=== PATIENT | female | born 1995 | race African-American/Black ===

== ENCOUNTER 2016-06-29 03:13 | Emergency (ER) | payer MEDICAID ==
[~2016-06-29] VITALS: Ht 165.1 cm; Wt 63.0 kg
[2016-06-29] MEDS ORDERED: FAMOTIDINE 20MG/2ML VIAL IV SCH (05:00)
[2016-06-29] MEDS ORDERED: SODIUM CHLORIDE 0.9% 1,000 ML IV ONE (05:00)
[2016-06-29] MEDS ORDERED: ONDANSETRON HCL 4MG/2ML VIAL IV ONE (05:00)
[2016-06-29 05:15] LABS: HEMATOCRIT. 34.9 % (36.0-48.0); HEMOGLOBIN. 11.2 g/dL (12.0-16.0); MEAN CORPUSCULAR HEMOGLOBIN 26.8 pg (28.0-32.0); MEAN CORPUSCULAR HGB CONC 32.1 g/dL (31.0-37.0); MEAN CORPUSCULAR VOLUME 83.5 fL (81.0-99.0); PLATELET 173 x1000/uL (130-400); RED BLOOD CELL COUNT 4.18 mill/uL (4.2-5.4); RED CELL DISTRIBUTION WIDTH 12.7 % (11.6-14.6); WHITE BLOOD COUNT 9.8 x1000/uL (4.5-11.0)
[2016-06-29 05:29] LABS: ALANINE AMINOTRANSFERASE 22 IU/L (13-61); ALBUMIN 3.9 g/dL (3.4-5.0); ANION GAP 11; CALCIUM 8.6 mg/dL (8.5-10.1); CARBON DIOXIDE 26 mEq/L (21-32); CHLORIDE 107 mEq/L (98-107); INDEX HEMOLYSI 1 (1-3); INDEX ICTERIC 1 (1-4); INDEX LIPEMIC 1 (1-3); LIPASE 83 IU/L (73-393); UREA NITROGEN BLOOD 16 mg/dL (7-21); eGFR > 60 mL/min (>60)
[2016-06-29 07:09] LABS: GLUCOSE URINE NEGATIVE (NEGATIVE); KETONES URINE NEGATIVE (NEGATIVE); LEUKOCYTE ESTERASE URINE TRACE (NEGATIVE); NITRITE URINE NEGATIVE (NEGATIVE); OCCULT BLOOD URINE 3+ (NEGATIVE); PH URINE 5.5 (4.5-8.0); PROTEIN URINE NEGATIVE (NEGATIVE); SPECIFIC GRAVITY URINE 1.019 (1.005-1.030); UROBILINOGEN URINE 0.2 E.U./dL (0.2-1.0)
[2016-06-29 07:11] LABS: CLARITY URINE CLEAR (CLEAR); COLOR URINE YELLOW (YELLOW)
[2016-06-29 07:24] LABS: PLATELET ESTIMATE NORMAL
[2016-06-29 07:34] VITALS: BP 104/66
[2016-06-29 07:43] LABS: BACTERIA URINE NONE SEEN; SQUAMOUS EPITHELIAL CELL URINE 1+ /lpf (RARE/1+)
== END 2016-06-29 08:12 | disposition home or self-care (01) ==
LOC: ER 03:24
DX: K29.70 Gastritis, unspecified, without bleeding (principal); R19.7 Diarrhea, unspecified; R03.0 Elevated blood-pressure reading, without diagnosis of hypertension; Z86.59 Personal history of other mental and behavioral disorders
CPT/HCPCS: 36415; 80053; 81001; 83690; 85007; 85027; 96361; 96374; 96375; 99284; J2405; J3490; J7030; Z7610; 81025; 96379

== ENCOUNTER 2023-10-16 15:52 | Emergency (ER) | payer MEDICAID ==
[~2023-10-16] VITALS: Ht 167.6 cm; Wt 70.0 kg
[2023-10-16 15:54] VITALS: BP 134/69; PULSE 95; RESP 18; TEMP 98; O2SAT 100
[2023-10-16 17:46] LABS: BASOPHILS % 0.4 % (0.0-2.0); EOSINOPHILS % 0.4 % (0.0-5.0); HEMATOCRIT. 32.7 % (36.0-48.0); HEMOGLOBIN. 10.5 g/dL (12.0-16.0); LYMPHOCYTES % 31.4 % (20.0-50.0); MEAN CORPUSCULAR HEMOGLOBIN 27.2 pg (28.0-32.0); MEAN CORPUSCULAR HGB CONC 32.2 g/dL (31.0-37.0); MEAN CORPUSCULAR VOLUME 84.5 fL (81.0-99.0); MEAN PLATELET VOLUME 9.7 fl (7.4-10.4); MONOCYTES % 5.2 % (2.0-8.0); NEUTROPHILS % 62.6 % (40.0-76.0); PLATELET 208 x1000/uL (130-400); RED BLOOD CELL COUNT 3.87 mill/uL (4.2-5.4); WHITE BLOOD COUNT 5.7 x1000/uL (4.5-11.0)
[2023-10-16 17:55] LABS: CHLORIDE 106 mEq/L (98-107); POTASSIUM 3.5 mEq/L (3.5-5.1); SODIUM 136 mEq/L (136-145)
[2023-10-16 17:56] LABS: CALCIUM 8.9 mg/dL (8.7-10.4); CARBON DIOXIDE 24 mEq/L (21-32)
[2023-10-16 18:01] LABS: CREATININE 0.5 mg/dL (0.6-1.0); GLUCOSE 75 mg/dL (70-105); UREA NITROGEN BLOOD 12 mg/dL (9-23)
[2023-10-16 18:03] LABS: ALANINE AMINOTRANSFERASE 8 IU/L (10-49); ALBUMIN 4.2 g/dL (3.2-4.8); ASPARTATE AMINOTRANSFERASE 15 IU/L (<34); BILIRUBIN TOTAL 0.3 mg/dL (0.1-1.0)
[2023-10-16 18:13] LABS: TROPONIN I HIGH SENSITIVITY < 4 ng/L (3.0-34)
== END 2023-10-16 22:00 | disposition home or self-care (01) ==
LOC: ER 15:52
DX: R07.89 Other chest pain (principal); D64.9 Anemia, unspecified; F32.9 Major depressive disorder, single episode, unspecified
CPT/HCPCS: 36415; 80053; 84484; 85025; 99283

== ENCOUNTER 2024-07-10 23:01 | Emergency (ER) | payer MEDICAID, OTHER ==
[~2024-07-10] VITALS: Ht 165.1 cm; Wt 80.0 kg
[2024-07-10 23:04] VITALS: O2SAT 99
[2024-07-10 23:18] VITALS: TEMP 37.3
[2024-07-10] MEDS: ONDANSETRON 4MG ODT PO ONE (23:36)
[2024-07-10 23:37] VITALS: TEMP 99.1
[2024-07-10] MEDS: ACETAMINOPHEN 325MG TABLET PO ONE (23:37)
[2024-07-11 00:14] LABS: BASOPHILS % 0.5 % (0.0-2.0); DIFFERENTIAL COMMENT 0; EOSINOPHILS % 0.5 % (0.0-5.0); HEMATOCRIT. 37.5 % (36.0-48.0); HEMOGLOBIN. 11.5 g/dL (12.0-16.0); LYMPHOCYTES % 21.2 % (20.0-50.0); MEAN CORPUSCULAR HEMOGLOBIN 25.4 pg (28.0-32.0); MEAN CORPUSCULAR HGB CONC 30.6 g/dL (31.0-37.0); MEAN CORPUSCULAR VOLUME 82.9 fL (81.0-99.0); MEAN PLATELET VOLUME 11.1 fl (7.4-10.4); MONOCYTES % 4.1 % (2.0-8.0); NEUTROPHILS % 73.7 % (40.0-76.0); PLATELET 182 x1000/uL (130-400); RED BLOOD CELL COUNT 4.52 mill/uL (4.2-5.4); WHITE BLOOD COUNT 8.3 x1000/uL (4.5-11.0)
[2024-07-11 00:20] LABS: CHLORIDE 104 mEq/L (98-107); POTASSIUM 3.5 mEq/L (3.5-5.1); SODIUM 139 mEq/L (136-145)
[2024-07-11 00:21] LABS: CALCIUM 9.4 mg/dL (8.7-10.4); CARBON DIOXIDE 27 mEq/L (21-32)
[2024-07-11 00:26] LABS: CREATININE 0.7 mg/dL (0.6-1.0); GLUCOSE 105 mg/dL (70-105); UREA NITROGEN BLOOD 11 mg/dL (9-23)
[2024-07-11 00:36] LABS: INR 0.9
[2024-07-11] MEDS: IBUPROFEN 600MG TABLET PO ONE (01:26)
[2024-07-11 01:36] LABS: CLARITY URINE CLEAR (CLEAR); COLOR URINE YELLOW (YELLOW); GLUCOSE URINE NEGATIVE (NEGATIVE); KETONES URINE NEGATIVE (NEGATIVE); LEUKOCYTE ESTERASE URINE 1+ (NEGATIVE); NITRITE URINE NEGATIVE (NEGATIVE); OCCULT BLOOD URINE NEGATIVE (NEGATIVE); PROTEIN URINE NEGATIVE (NEGATIVE); SPECIFIC GRAVITY URINE 1.005 (1.005-1.030); UROBILINOGEN URINE 0.2 E.U./dL (0.2-1.0)
[2024-07-11 02:17] LABS: SQUAMOUS EPITHELIAL CELL URINE 1+ /lpf (RARE/1+)
[2024-07-11 02:18] LABS: RBC URINE 0-2 /hpf (0-2)
[2024-07-11 02:19] LABS: BACTERIA URINE NONE SEEN
[2024-07-11] MEDS ORDERED: IBUP-1521 MT (02:33)
[2024-07-11 02:39] VITALS: BP 112/80; PULSE 95; RESP 16; O2SAT 99
== END 2024-07-11 02:40 | disposition home or self-care (01) ==
LOC: ER 23:01
DX: I10 Essential (primary) hypertension (principal); R51.9 Headache, unspecified; F10.90 Alcohol use, unspecified, uncomplicated; I34.1 Nonrheumatic mitral (valve) prolapse; Y90.9 Presence of alcohol in blood, level not specified
CPT/HCPCS: 99284; 80048; 81025; 85025; 85610; 36415; 70450; 81003; Q0162